=== PATIENT | female | born 2000 | race Caucasian/White ===

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

== ENCOUNTER 2022-07-14 23:53 | Emergency (ER) | payer OTHER ==
[2022-07-15 00:01] VITALS: BP 105/72; PULSE 66; RESP 16; TEMP 98.2; BMI 23.8
== END 2022-07-15 00:18 | disposition home or self-care (01) ==
LOC: FER 23:53
DX: R42 Dizziness and giddiness (principal); M54.2 Cervicalgia; V49.9XXA Car occupant (driver) (passenger) injured in unspecified traffic accident, initial encounter
CPT/HCPCS: 99283-25

== ENCOUNTER 2023-06-08 13:34 | Emergency (ER) | payer OTHER ==
[2023-06-08 13:51] VITALS: BP 100/49; PULSE 75; RESP 18; TEMP 99.1; BMI 24.5
[2023-06-08] MEDS ORDERED: ONDANSETRON 4 MG/2 ML VIAL IVPUSH ONE (13:53)
[2023-06-08] MEDS ORDERED: SODIUM CHLORIDE 0.9% 500 ML INFUS.BAG IV ONE (13:53)
[2023-06-08] MEDS ORDERED: ACETAMINOPHEN 1000 MG/100 ML BAG IVPB ONE (13:53)
[2023-06-08 14:25] LABS: MCH 28.5 pg (25.7-33.7); MCHC 34.9 g/dl (32.0-36.0); MEAN CELL VOLUME 81.6 fl (80-96); MEAN PLT VOLUME 8.1 fl (7.5-11.1); PLATELET COUNT 316.2 10^3/uL (134-434); RBC 5.27 10^6/uL (3.60-5.2); RDW 14.3 % (11.6-15.6); WHITE BLOOD COUNT 17.1 10^3/uL (4.0-10.8)
[2023-06-08] MEDS ORDERED: ACETAMINOPHEN INJECTION 100 ML IVPB ONE (14:25)
[2023-06-08] MEDS ORDERED: ONDANSETRON 4 MG/2 ML VIAL ONE (14:25)
[2023-06-08 14:43] LABS: ALBUMIN 5.1 g/dl (3.4-5.0); BILIRUBIN,TOTAL 0.5 mg/dl (0.2-1); BLOOD UREA NITROGEN 17.4 mg/dl (7-18); CALCIUM 10.5 mg/dl (8.5-10.1); CREATININE 0.6 mg/dl (0.6-1.3); POTASSIUM 3.5 mmol/L (3.5-5.1); SGOT/AST 15.5 U/L (15-37); SGPT/ALT 12.9 U/L (7-52); TOT PROT 8.6 g/dl (6.4-8.2)
[2023-06-08 16:43] LABS: PLATELET ESTIMATE ADEQUATE
== END 2023-06-08 17:19 | disposition home or self-care (01) ==
LOC: FER 13:34
PROC: 3E033NZ Introduction of Analgesics, Hypnotics, Sedatives into Peripheral Vein, Percutaneous Approach (ICD-10-PCS; principal; 2023-06-08)
PROC: 3E033GC Introduction of Other Therapeutic Substance into Peripheral Vein, Percutaneous Approach (ICD-10-PCS; 2023-06-08)
DX: R11.2 Nausea with vomiting, unspecified (principal)
CPT/HCPCS: 36415; 74177-TC; 80053; 81003; 81015; 83690; 84703; 85027; 87086; 99285-25; Q9967

== ENCOUNTER 2023-08-01 20:22 | Emergency (ER) | payer OTHER ==
[2023-08-01] MEDS ORDERED: ACETAMINOPHEN 500 MG TABLET (FP) PO ONE (20:40)
[2023-08-01 20:41] VITALS: RESP 18; BMI 23.9
[2023-08-01] MEDS ORDERED: ACETAMINOPHEN 500 MG TABLET (FP) ONE (20:51)
[2023-08-01] MEDS ORDERED: IBUPROFEN 600 MG TABLET (FP) PO ONE ×2 (22:12→22:14)
[2023-08-01 22:14] VITALS: BP 115/74; PULSE 90; TEMP 99
== END 2023-08-01 22:29 | disposition home or self-care (01) ==
LOC: FER 20:22
DX: R50.9 Fever, unspecified (principal); B34.9 Viral infection, unspecified; Z20.822 Contact with and (suspected) exposure to COVID-19
CPT/HCPCS: 0241U-QW; 71046-TC-FY; 99284-25

== ENCOUNTER 2023-11-02 13:40 | Emergency (ER) | payer OTHER ==
[2023-11-02 14:08] VITALS: BMI 25.0
[2023-11-02] MEDS ORDERED: SODIUM CHLORIDE 0.9% 500 ML INFUS.BAG IV ONE (14:09)
[2023-11-02] MEDS ORDERED: ACETAMINOPHEN 1000 MG/100 ML BAG IVPB ONE (14:09)
[2023-11-02] MEDS ORDERED: ONDANSETRON 4 MG/2 ML VIAL IVPUSH ONE (14:09)
[2023-11-02] MEDS ORDERED: ACETAMINOPHEN INJECTION 100 ML IVPB ONE (14:15)
[2023-11-02] MEDS ORDERED: ONDANSETRON 4 MG/2 ML VIAL ONE (14:15)
[2023-11-02 14:40] LABS: HEMATOCRIT 36.2 % (32.4-45.2); HEMOGLOBIN 12.2 G/dL (10.7-15.3); MCH 27.6 pg (25.7-33.7); MCHC 33.8 g/dl (32.0-36.0); MEAN CELL VOLUME 81.8 fl (80-96); MEAN PLT VOLUME 9.4 fl (7.5-11.1); PLATELET COUNT 198.1 10^3/uL (134-434); RBC 4.43 10^6/uL (3.60-5.2); RDW 14.2 % (11.6-15.6)
[2023-11-02 15:07] LABS: ALBUMIN 4.7 g/dl (3.4-5.0); BILIRUBIN,TOTAL 0.6 mg/dl (0.2-1); CALCIUM 9.6 mg/dl (8.5-10.1); CREATININE 0.6 mg/dl (0.6-1.3); POTASSIUM 3.3 mmol/L (3.5-5.1); TOT PROT 7.6 g/dl (6.4-8.2)
[2023-11-02 15:12] LABS: EPITHELIAL CELLS 0-5 /hpf
[2023-11-02] MEDS ORDERED: POTASSIUM CHLORIDE ORAL LIQUID 20 MEQ/15 ML PO ONE (15:32)
[2023-11-02] MEDS ORDERED: POTASSIUM CHLORIDE ORAL LIQUID 20 MEQ/15 ML ONE (16:08)
[2023-11-02 16:15] LABS: PLATELET ESTIMATE ADEQUATE
[2023-11-02 17:57] VITALS: BP 119/77; PULSE 78; RESP 16; TEMP 98.5
== END 2023-11-02 19:10 | disposition home or self-care (01) ==
LOC: FER 13:40
PROC: 3E033NZ Introduction of Analgesics, Hypnotics, Sedatives into Peripheral Vein, Percutaneous Approach (ICD-10-PCS; principal; 2023-11-02)
PROC: 3E033GC Introduction of Other Therapeutic Substance into Peripheral Vein, Percutaneous Approach (ICD-10-PCS; 2023-11-02)
DX: R50.9 Fever, unspecified (principal); R51.9 Headache, unspecified; R11.0 Nausea; R05.9 Cough, unspecified; R09.81 Nasal congestion; M54.9 Dorsalgia, unspecified; M79.10 Myalgia, unspecified site; R21 Rash and other nonspecific skin eruption; J10.1 Influenza due to other identified influenza virus with other respiratory manifestations; U07.1 COVID-19
CPT/HCPCS: 0241U-QW; 36415; 71045-TC-FY; 74177-TC; 80053; 81003; 81015; 83605; 83690; 84703; 85027; 87086; 87186; 87651; 99285-25; Q9967

== ENCOUNTER 2023-11-04 13:26 | Emergency (ER) | payer OTHER ==
[2023-11-04] MEDS ORDERED: FAMOTIDINE 20 MG/50 ML IVPB 20 MG/50 ML MG IVPB ONE ×2 (13:28→14:18)
[2023-11-04] MEDS ORDERED: ACETAMINOPHEN 1000 MG/100 ML BAG IVPB ONE (13:28)
[2023-11-04] MEDS ORDERED: MAG HYDROX/AL HYDROX/SIMETH 30 ML UNIT-DOSE CUP PO ONE (13:28)
[2023-11-04] MEDS ORDERED: ONDANSETRON 4 MG/2 ML VIAL IVPUSH ONE (13:29)
[2023-11-04] MEDS ORDERED: LACTATED RINGERS SOLUTION 1000 ML INFUS.BAG IV ONE (13:30)
[2023-11-04 14:00] VITALS: BP 109/83; PULSE 85; RESP 16; TEMP 98; BMI 21.9
[2023-11-04] MEDS ORDERED: MAG HYDROX/AL HYDROX/SIMETH 30 ML UNIT-DOSE CUP ONE (14:18)
[2023-11-04] MEDS ORDERED: ONDANSETRON 4 MG/2 ML VIAL ONE (14:18)
[2023-11-04] MEDS ORDERED: ACETAMINOPHEN INJECTION 100 ML IVPB ONE (14:18)
[2023-11-04] MEDS ORDERED: SODIUM CHLORIDE 0.9% 500 ML INFUS.BAG IV ONE (14:23)
[2023-11-04 14:24] LABS: HEMOGLOBIN 12.5 G/dL (10.7-15.3); MCHC 34.8 g/dl (32.0-36.0); MEAN CELL VOLUME 80.7 fl (80-96); MEAN PLT VOLUME 9.4 fl (7.5-11.1); PLATELET COUNT 180.9 10^3/uL (134-434); RBC 4.46 10^6/uL (3.60-5.2); RDW 14.4 % (11.6-15.6); WHITE BLOOD COUNT 2.8 10^3/uL (4.0-10.8)
[2023-11-04 14:35] LABS: ALBUMIN 4.2 g/dl (3.4-5.0); BILIRUBIN,TOTAL 0.4 mg/dl (0.2-1); CALCIUM 8.8 mg/dl (8.5-10.1); CREATININE 0.5 mg/dl (0.6-1.3); MAGNESIUM 2.1 mg/dL (1.8-2.4); TOT PROT 6.9 g/dl (6.4-8.2)
[2023-11-04] MEDS ORDERED: LIDOCAINE 2.5%/PRILOCAINE 2.5% 30 GRAM TUBE TP ONE (15:18)
[2023-11-04 15:47] LABS: PLATELET ESTIMATE ADEQUATE
[2023-11-04] MEDS ORDERED: LIDOCAINE 2.5%/PRILOCAINE 2.5% (5 Gram/TUBE) TP ONE (15:54)
== END 2023-11-04 17:02 | disposition home or self-care (01) ==
LOC: FER 13:26
PROC: 3E033GC Introduction of Other Therapeutic Substance into Peripheral Vein, Percutaneous Approach (ICD-10-PCS; principal; 2023-11-04)
PROC: 3E033GC Introduction of Other Therapeutic Substance into Peripheral Vein, Percutaneous Approach (ICD-10-PCS; 2023-11-04)
PROC: 3E033NZ Introduction of Analgesics, Hypnotics, Sedatives into Peripheral Vein, Percutaneous Approach (ICD-10-PCS; 2023-11-04)
DX: J11.1 Influenza due to unidentified influenza virus with other respiratory manifestations (principal); R11.2 Nausea with vomiting, unspecified; M79.10 Myalgia, unspecified site; R10.13 Epigastric pain; R20.2 Paresthesia of skin; R55 Syncope and collapse
CPT/HCPCS: 36415; 70450-TC; 71046-TC-FY; 80053; 83690; 83735; 85027; 99285-25

== ENCOUNTER 2024-01-14 11:10 | Emergency (ER) | payer OTHER ==
[2024-01-14 11:29] VITALS: BP 126/84; PULSE 82; RESP 18; TEMP 99.1; BMI 21.9
[2024-01-14] MEDS ORDERED: MAG HYDROX/AL HYDROX/SIMETH 30 ML UNIT-DOSE CUP ONE (12:06)
[2024-01-14] MEDS ORDERED: FAMOTIDINE 20 MG/50 ML IVPB 20 MG/50 ML MG IVPB ONE (12:06)
[2024-01-14] MEDS: MAG HYDROX/AL HYDROX/SIMETH 30 ML UNIT-DOSE CUP PO ONE (12:16)
[2024-01-14] MEDS: SODIUM CHLORIDE 0.9% 500 ML INFUS.BAG IV ONE (12:16)
[2024-01-14] MEDS: FAMOTIDINE 20 MG/50 ML IVPB 20 MG/50 ML MG IVPB ONE (12:17)
[2024-01-14 12:26] LABS: HEMOGLOBIN 13.3 G/dL (10.7-15.3); MCHC 33.4 g/dl (32.0-36.0); MEAN PLT VOLUME 8.9 fl (7.5-11.1); PLATELET COUNT 250.6 10^3/uL (134-434); RBC 4.94 10^6/uL (3.60-5.2); RDW 14.3 % (11.6-15.6)
[2024-01-14] MEDS: ACETAMINOPHEN 1000 MG/100 ML BAG IVPB ONE (12:30)
[2024-01-14 12:34] LABS: ALBUMIN 4.7 g/dl (3.4-5.0); ALK PHOS 55 U/L (45-117); ANION GAP 7 mmol/L (4-13); BILIRUBIN,TOTAL 0.4 mg/dl (0.2-1); CALCIUM 10.5 mg/dl (8.5-10.1); CHLORIDE 103 mmol/L (98-107); CO2 28 mmol/L (21-32); CREATININE 0.5 mg/dl (0.6-1.3); GLUCOSE,RANDOM 74 mg/dl (74-106); SGOT/AST 15 U/L (15-37); SGPT/ALT 14 U/L (7-52); SODIUM 138 mmol/L (136-145); TOT PROT 7.6 g/dl (6.4-8.2)
[2024-01-14] MEDS ORDERED: ACETAMINOPHEN INJECTION 100 ML IVPB ONE (12:38)
[2024-01-14 12:52] LABS: PLATELET ESTIMATE ADEQUATE
== END 2024-01-14 13:38 | disposition home or self-care (01) ==
LOC: FER 11:10
PROC: 3E033GC Introduction of Other Therapeutic Substance into Peripheral Vein, Percutaneous Approach (ICD-10-PCS; principal; 2024-01-14)
PROC: 3E033NZ Introduction of Analgesics, Hypnotics, Sedatives into Peripheral Vein, Percutaneous Approach (ICD-10-PCS; 2024-01-14)
DX: R07.89 Other chest pain (principal); R05.9 Cough, unspecified; M79.10 Myalgia, unspecified site; R11.0 Nausea
CPT/HCPCS: 36415; 80053; 83690; 84484; 84703; 85027; 85379; 93005; 93010; 99284-25; J0131

== ENCOUNTER 2024-02-06 23:36 | Emergency (ER) | payer OTHER ==
[2024-02-06 23:42] VITALS: BP 123/77; PULSE 71; RESP 16; TEMP 98.4; BMI 21.9
[2024-02-07] MEDS ORDERED: ONDANSETRON *ODT* 4 MG TABLET ONE (00:03)
[2024-02-07] MEDS: ONDANSETRON *ODT* 4 MG TABLET SL ONE (00:04)
== END 2024-02-07 00:48 | disposition home or self-care (01) ==
LOC: FER 23:36
DX: R11.2 Nausea with vomiting, unspecified (principal)
CPT/HCPCS: 99283-25; Q0162

== ENCOUNTER 2024-10-28 20:52 | Emergency (ER) | payer OTHER ==
[2024-10-28 21:00] VITALS: BP 119/68; PULSE 79; RESP 18; TEMP 99.2; BMI 23.9
[2024-10-28 22:02] LABS: HEMATOCRIT 40.7 % (32.4-45.2); HEMOGLOBIN 14.1 G/dL (10.7-15.3); MCH 28.4 pg (25.7-33.7); MCHC 34.7 g/dl (32.0-36.0); MEAN CELL VOLUME 81.7 fl (80-96); MEAN PLT VOLUME 9.3 fl (7.5-11.1); PLATELET COUNT 268.4 10^3/uL (134-434); RBC 4.98 10^6/uL (3.60-5.2); RDW 13.9 % (11.6-15.6); WHITE BLOOD COUNT 6.9 10^3/uL (4.0-10.8)
[2024-10-28] MEDS ORDERED: ONDANSETRON 4 MG/2 ML VIAL ONE (22:12)
[2024-10-28] MEDS: SODIUM CHLORIDE 1,000 ML IV ONE (22:21)
[2024-10-28] MEDS: ONDANSETRON 4 MG/2 ML VIAL IVPUSH ONE (22:22)
[2024-10-28 22:24] LABS: ALBUMIN 4.9 g/dl (3.4-5.0); BILIRUBIN,TOTAL 0.4 mg/dl (0.2-1); CALCIUM 10.2 mg/dl (8.5-10.1); CREATININE 0.6 mg/dl (0.6-1.3); POTASSIUM 3.7 mmol/L (3.5-5.1); TOT PROT 7.9 g/dl (6.4-8.2)
[2024-10-29 14:42] LABS: HEPATITIS B SURFACE AG CONFIRM NOT CONFIRMED (NONREACTIVE)
== END 2024-10-28 23:36 | disposition home or self-care (01) ==
LOC: FER 20:52
PROC: 3E033GC Introduction of Other Therapeutic Substance into Peripheral Vein, Percutaneous Approach (ICD-10-PCS; principal; 2024-10-28)
PROC: 3E0337Z Introduction of Electrolytic and Water Balance Substance into Peripheral Vein, Percutaneous Approach (ICD-10-PCS; 2024-10-28)
DX: R11.2 Nausea with vomiting, unspecified (principal); R10.13 Epigastric pain
CPT/HCPCS: 36415; 80053; 85027; 86705; 86706; 87340; 99284-25